=== PATIENT | female | born 1935 | race American Indian/Alaskan Native ===

== ENCOUNTER 2019-03-09 09:46 | Day surgery (SDC) | payer MEDICARE ==
[~2019-03-09 09:46] MED LIST: TETRACAINE 0.5% OD PRN
--- NOTE | 2019-03-09 11:23 | Anesthesia Day of Surgery ---
Anesthesia Day of Surgery - Day of Surgery Patient Examined: Yes Patient H&P Reviewed: Yes Patient is NPO: Yes
--- NOTE | 2019-03-09 11:28 | Anesthesia Consultation ---
Anesthesia Consult and Med Hx Date of service: 03/09/19 - Airway Anesthetic Teeth Evaluation: Dentures ROM Head & Neck: Adequate Mental/Hyoid Distance: Adequate Mallampati Class: Class II Intubation Access Assessment: Good - Pre-Operative Health Status ASA Pre-Surgery Classification: ASA2 Proposed Anesthetic Plan: MAC - Pulmonary Hx Smoking: No Hx Asthma: Yes Hx Sleep Apnea: No - Central Nervous System Hx Back Pain: Yes (6 SHOTS BACK,THEN PHYSICAL THERAPHY-STILL HURTS) Hx Psychiatric Problems: Yes - Hematic Hx Anemia: Yes - Other Systems Hx Alcohol Use: No Hx Substance Use: No Hx Cancer: No
[2019-03-09] MEDS: VIGAMOX OD SCH ×3 (11:40→11:50)
[2019-03-09] MEDS: AK-Dilate OD SCH ×3 (11:40→11:50)
[2019-03-09] MEDS: MYDRIACYL OD SCH ×3 (11:40→11:50)
[2019-03-09] MEDS ORDERED: SUBLIMAZE ONE (12:01)
[2019-03-09] MEDS ORDERED: VERSED IV ONE (12:02)
[2019-03-09] MEDS ORDERED: NACL P/F VIAL (10 ML) 10 ML ONE (12:05)
[2019-03-09] MEDS ORDERED: PRED FORTE 1% OD ONE (12:28)
[2019-03-09] MEDS ORDERED: DIAMOX PO ONE (12:28)
--- NOTE | 2019-03-09 12:29 | Operative Report ---
Operative Report Operative Report: PATIENT'S NAME: DATE OF : DATE OF SURGERY: 03/09/2019 PREOPERATIVE DIAGNOSIS: Cataract right eye POSTOPERATIVE DIAGNOSIS: Same OPERATIVE PROCEDURE: Phacoemulsification with intraocular lens implantation, right eye SURGEON: Delmy Robert M.D. SPECIAL AGENT SURGEON: Petra Lens: [id number] 22.0] D ANESTHESIA: Monitored anesthesia care in combination with topical and intracameral anesthesia because of the established specific risk of reflux, arrhythmias, or anxiety attacks associated with ocular manipulation, as well as the difficulty of the functional skills tutor to manage such potentially catastrophic events while simultaneously attempting to complete the surgical procedure and was deemed necessary for the patient's safety to have an Bath Steward present during the procedure whenever possible. An Bath Steward was utilized to regulate the intravenous sedation of the patient so the patient was cooperative yet not asleep in order for the patient to successfully maintain fixation of the eye on the operating light of the microscope. COMPLICATIONS: No surgical complications No blood loss. ALLERGIES: No known drug allergies PROGNOSIS: Excellent INDICATIONS FOR SURGERY: The patient is undergoing surgery in the hopes of eliminating or improving these visual difficulties. PROCEDURE: After arriving at the surgery center, the patient was given topical anesthetic and dilating drops, as noted in the record. The patient was then taken into the operating room and given more anesthetic drops. The eyelids, lashes, and lid margins were scrubbed with Betadine solution, and the patient was draped. The Nurse Bath Steward administered IV sedation and monitored the patient during the procedure. The eye was then fixated with a 0.12, and a stab incision was made in the peripheral clear cornea into the anterior chamber. This was made on my left side. Viscoelastic was next used to fill the anterior chamber. The eye was once again fixated with the 0.12 forceps and a keratome was used make an incision in clear cornea peripherally on my right hand side temporally. The capsule forceps were used to open the central anterior capsule and then make a continuous round capsulotomy. Hydrodissection was carried out utilizing a cannula and balanced salt solution to delineate the cortical material from the capsule and the nucleus from the cortical material. The phaco tip was introduced into the eye and used to remove the anterior cortical material in the area of the capsulotomy. Then the phaco tip was buried into the nucleus, and a chopping instrument was introduced into the eye and used to provide countertraction in the nucleus between this instrument and the phaco tip fracturing the nucleus. This procedure was repeated multiple times, providing multiple small segments of the lens, and then the phaco tip was used to remove each of these segments. An I/A tip was then used to remove the remaining cortex. The anterior chamber was refilled with viscoelastic. An one-piece, acrylic intraocular lens was then placed into an inserting cartridge. The tip of the inserting cartridge was introduced into the keratome incision and into the anterior chamber. The implant was gently advanced through the cartridge and into the eye, where it unfolded, and both haptics were placed in the capsular bag, where it centered nicely and appeared to be well fixated. After placement of the intraocular lens, the I~and~A handpiece was placed back into the eye and used to remove the viscoelastic, including viscoelastic that was behind the optic of the intraocular lens. The anterior chamber was then filled with balanced salt solution, and hydration of the wound was used to cause swelling of the wound and more appropriate watertight closure. When the wound was found to be firm, the patient was asked to comment on how bright the light was. If there was no light perception at all or if the light was substantially dimmer than during the rest of the surgery, the amount of fluid in the eye was decompressed to lower the intraocular pressure until the patient could see the bright light again. This was done to avoid any damage or decreased blood flow to the optic nerve. MEDICATIONS APPLIED AT END OF SURGERY: One drop of Pred Forte and Vigamox The patient was given a shield to wear at night and was instructed not to rub or push on the eye. DISCHARGE SUMMARY: The patient was released in stable condition. The patient and those with the patient were given a written sheet of postoperative instructions and counseling on any abnormal laboratory studies. The patient is to see us tomorrow for follow-up in the office and is to call immediately for any difficulties. Delmy Robert M.D. Date
--- NOTE | 2019-03-09 12:30 | Short Stay Summary ---
Short Stay Documentation Date of service: 03/09/19 - History H&P: obtained from office - Allergies and Medications Current Medications: Allergies No Known Allergies Allergy (Unverified 05/17/15 08:10) Home Medications Medication Instructions Recorded Confirmed Last Taken Type ALBUTEROL Inhaler (OR & NICU) 2 puff INNOSTRIL 4XD 03/08/19 03/08/19 Unknown History Aspirin 325 mg PO DAILY 03/08/19 03/08/19 Unknown History Cyproheptadine [Periactin] 4 mg PO DAILY 03/08/19 03/08/19 Unknown History Duloxetine HCl 30 mg PO DAILY 03/08/19 03/08/19 Unknown History Tizanidine HCl 2 mg PO DAILY 03/08/19 03/08/19 Unknown History traMADol [Ultram 50 MG tab] 50 mg PO BID 03/08/19 03/08/19 Unknown History Active Medications Acetazolamide (Diamox) 500 mg PO ONCE ONE Stop: 03/09/19 12:29 Moxifloxacin HCl (Vigamox) 1 drops OD Q5M NITIN Stop: 03/09/19 23:59 Last Admin: 03/09/19 11:50 Dose: 1 drops Documented by: Phenylephrine HCl (Ak-Dilate) 1 drops OD Q5M NITIN Stop: 03/09/19 23:59 Last Admin: 03/09/19 11:50 Dose: 1 drops Documented by: Prednisolone Acetate (Pred Forte 1%) 1 drops OD ONCE ONE Stop: 03/09/19 12:29 Tetracaine HCl (Tetracaine 0.5%) 1 drops OD Q5M PRN PRN Reason: Anesthesia Stop: 03/09/19 23:59 Last Admin: 03/09/19 11:40 Dose: 1 drops Documented by: Tropicamide (Mydriacyl) 1 drops OD Q5M NITIN Stop: 03/09/19 23:59 Last Admin: 03/09/19 11:50 Dose: 1 drops Documented by: - Brief post op/procedure progress note Date of procedure: 03/09/19 Pre-op diagnosis: right cataract Post-op diagnosis: same Procedure: Phacoemulsification with intraocular lens insertion right eye Anesthesia: MAC, local Surgeon: SHIVAM BEASLEY Estimated blood loss: none Pathology: none Condition: stable - Disposition Condition at discharge: Good Disposition: DC-01 TO HOME OR SELFCARE - Discharge Diagnoses (1) Cortical age-related cataract of right eye Status: Resolved Short Stay Discharge Plan Follow up with: BELL VALENZUELA MD [Primary Care Provider] - 7 Days
--- NOTE | 2019-03-09 13:13 | Post Anesthesia Evaluation ---
- Post Anesthesia Evaluation Patient Participated: Yes Airway Patent: Yes Stable Respiratory Function: Yes Nausea/Vomiting: No Temp > 96.8F: Yes Pain Manageable: Yes Adequeate Hydration: Yes Anesthesia Complications: No
[2019-03-09 14:34] VITALS: BP 159/83
[2019-03-09] MEDS ORDERED: DIAMOX ONE (16:30)
[2019-03-09] MEDS ORDERED: PRED FORTE 1% ONE (16:31)
== END 2019-03-09 13:30 | disposition home or self-care (01) ==
LOC: OR 09:46
DX: H25.011 Cortical age-related cataract, right eye (principal); J45.909 Unspecified asthma, uncomplicated; M19.90 Unspecified osteoarthritis, unspecified site; F32.9 Major depressive disorder, single episode, unspecified; Z79.899 Other long term (current) drug therapy; Z98.890 Other specified postprocedural states; Z98.51 Tubal ligation status
CPT/HCPCS: 66984; J2250; J3010; V2632

== ENCOUNTER 2019-03-30 07:42 | Day surgery (SDC) | payer MEDICARE ==
[~2019-03-30 07:42] MED LIST changes: -TETRACAINE 0.5% OD PRN; +VISION BLUE IO ONE
[2019-03-30] MEDS: VIGAMOX OS SCH ×3 (09:00→09:10)
[2019-03-30] MEDS: MYDRIACYL OS SCH ×3 (09:00→09:10)
[2019-03-30] MEDS ORDERED: TETRACAINE 0.5% OS NR (09:00)
[2019-03-30] MEDS: AK-Dilate OS SCH ×3 (09:00→09:10)
--- NOTE | 2019-03-30 09:23 | Anesthesia Day of Surgery ---
Anesthesia Day of Surgery - Day of Surgery Patient Examined: Yes Patient H&P Reviewed: Yes Patient is NPO: Yes
--- NOTE | 2019-03-30 09:26 | Anesthesia Consultation ---
Anesthesia Consult and Med Hx Date of service: 03/30/19 - Airway Anesthetic Teeth Evaluation: Dentures, Edentulous ROM Head & Neck: Adequate Mental/Hyoid Distance: Adequate Mallampati Class: Class II Intubation Access Assessment: Good - Pre-Operative Health Status ASA Pre-Surgery Classification: ASA2 Proposed Anesthetic Plan: MAC - Pulmonary Hx Smoking: No Hx Asthma: Yes (RESCUE INHALER) Hx Sleep Apnea: No - Central Nervous System Hx Back Pain: Yes Hx Psychiatric Problems: Yes (Depr) - Hematic Hx Anemia: Yes - Other Systems Hx Alcohol Use: No Hx Substance Use: No Hx Cancer: No
[2019-03-30] MEDS ORDERED: SUBLIMAZE ONE (09:53)
[2019-03-30] MEDS ORDERED: VERSED ONE (09:53)
[2019-03-30] MEDS ORDERED: VISION BLUE IO ONE (10:18)
[2019-03-30 10:39] VITALS: BP 155/89
--- NOTE | 2019-03-30 10:39 | Operative Report ---
Operative Report Operative Report: PATIENT'S NAME: DATE OF : DATE OF SURGERY: 03/30/2019 PREOPERATIVE DIAGNOSIS: Cataract left eye POSTOPERATIVE DIAGNOSIS: Same OPERATIVE PROCEDURE: Phacoemulsification with intraocular lens implantation, left eye SURGEON: Delmy Robert M.D. LICENSED PHYSICAL THERAPY ASSISTANT SURGEON: Petra Lens: [id number] 21.5 D ANESTHESIA: Monitored anesthesia care in combination with topical and intracameral anesthesia because of the established specific risk of reflux, arrhythmias, or anxiety attacks associated with ocular manipulation, as well as the difficulty of the global engineering manager to manage such potentially catastrophic events while simultaneously attempting to complete the surgical procedure and was deemed necessary for the patient's safety to have an Boiler Room Operator present during the procedure whenever possible. An Boiler Room Operator was utilized to regulate the intravenous sedation of the patient so the patient was cooperative yet not asleep in order for the patient to successfully maintain fixation of the eye on the operating light of the microscope. COMPLICATIONS: No surgical complications No blood loss. ALLERGIES: No known drug allergies PROGNOSIS: Excellent INDICATIONS FOR SURGERY: The patient is undergoing surgery in the hopes of eliminating or improving these visual difficulties. PROCEDURE: After arriving at the surgery center, the patient was given topical anesthetic and dilating drops, as noted in the record. The patient was then taken into the operating room and given more anesthetic drops. The eyelids, lashes, and lid margins were scrubbed with Betadine solution, and the patient was draped. The Nurse Boiler Room Operator administered IV sedation and monitored the patient during the procedure. The eye was then fixated with a 0.12, and a stab incision was made in the peripheral clear cornea into the anterior chamber. This was made on my left side. Red reflex was extremely poor because of a steroid hyalosis decided to use trypan blue. Viscoelastic was next used to fill the anterior chamber. The eye was once again fixated with the 0.12 forceps and a keratome was used make an incision in clear cornea peripherally on my right hand side temporally. The capsule forceps were used to open the central anterior capsule and then make a continuous round capsulotomy. Hydrodissection was carried out utilizing a cannula and balanced salt solution to delineate the cortical material from the capsule and the nucleus from the cortical material. The phaco tip was introduced into the eye and used to remove the anterior cortical material in the area of the capsulotomy. Then the phaco tip was buried into the nucleus, and a chopping instrument was introduced into the eye and used to provide countertraction in the nucleus between this instrument and the phaco tip fracturing the nucleus. This procedure was repeated multiple times, providing multiple small segments of the lens, and then the phaco tip was used to remove each of these segments. An I/A tip was then used to remove the remaining cortex. The anterior chamber was refilled with viscoelastic. An one-piece, acrylic intraocular lens was then placed into an inserting cartridge. The tip of the inserting cartridge was introduced into the keratome incision and into the anterior chamber. The implant was gently advanced through the cartridge and into the eye, where it unfolded, and both haptics were placed in the capsular bag, where it centered nicely and appeared to be well fixated. After placement of the intraocular lens, the I~and~A handpiece was placed back into the eye and used to remove the viscoelastic, including viscoelastic that was behind the optic of the intraocular lens. The anterior chamber was then filled with balanced salt solution, and hydration of the wound was used to cause swelling of the wound and more appropriate watertight closure. When the wound was found to be firm, the patient was asked to comment on how bright the light was. If there was no light perception at all or if the light was substantially dimmer than during the rest of the surgery, the amount of fluid in the eye was decompressed to lower the intraocular pressure until the patient could see the bright light again. This was done to avoid any damage or decreased blood flow to the optic nerve. MEDICATIONS APPLIED AT END OF SURGERY: One drop of Pred Forte and Vigamox The patient was given a shield to wear at night and was instructed not to rub or push on the eye. DISCHARGE SUMMARY: The patient was released in stable condition. The patient and those with the patient were given a written sheet of postoperative instructions and counseling on any abnormal laboratory studies. The patient is to see us tomorrow for follow-up in the office and is to call immediately for any difficulties. Delmy Robert M.D. Date
--- NOTE | 2019-03-30 10:40 | Short Stay Summary ---
Short Stay Documentation Date of service: 03/30/19 - History H&P: obtained from office - Allergies and Medications Current Medications: Allergies No Known Allergies Allergy (Verified 03/27/19 16:57) Home Medications Medication Instructions Recorded Confirmed Last Taken Type ALBUTEROL Inhaler (OR & NICU) 2 puff INNOSTRIL 4XD 03/08/19 03/27/19 03/29/19 05:00 History Aspirin 325 mg PO DAILY 03/08/19 03/27/19 03/29/19 05:00 History Duloxetine HCl 30 mg PO DAILY 03/08/19 03/27/19 03/29/19 05:00 History Tizanidine HCl 2 mg PO DAILY 03/08/19 03/27/19 03/29/19 05:00 History traMADol [Ultram 50 MG tab] 50 mg PO BID 03/08/19 03/27/19 03/29/19 05:00 History Active Medications Acetazolamide (Diamox) 500 mg PO ONCE NR Stop: 03/30/19 17:00 Moxifloxacin HCl (Vigamox) 1 drops OS Q5MIN NITIN Stop: 04/05/19 08:24 Last Admin: 03/30/19 09:10 Dose: 1 drops Documented by: Phenylephrine HCl (Ak-Dilate) 1 drops OS Q5MIN NITIN Stop: 03/30/19 15:00 Last Admin: 03/30/19 09:10 Dose: 1 drops Documented by: Prednisolone Acetate (Pred Forte 1%) 1 drops OS ONCE NR Tetracaine HCl (Tetracaine 0.5%) 1 drops OS ONCE NR Stop: 03/30/19 15:00 Last Admin: 03/30/19 09:00 Dose: 1 drops Documented by: Tropicamide (Mydriacyl) 1 drops OS Q5MIN NITIN Stop: 03/30/19 15:00 Last Admin: 03/30/19 09:10 Dose: 1 drops Documented by: - Brief post op/procedure progress note Date of procedure: 03/30/19 Pre-op diagnosis: left cataract Post-op diagnosis: same Procedure: Phacoemulsification with intraocular lens insertion left eye Anesthesia: MAC, local Surgeon: SHIVAM BEASLEY Estimated blood loss: none Pathology: none Condition: stable - Disposition Condition at discharge: Good Disposition: DC-01 TO HOME OR SELFCARE - Discharge Diagnoses (1) Cortical age-related cataract of left eye Status: Resolved Short Stay Discharge Plan Follow up with: BELL VALENZUELA MD [Primary Care Provider] - 7 Days
[2019-03-30] MEDS ORDERED: PRED FORTE 1% OS NR (11:00)
[2019-03-30] MEDS ORDERED: DIAMOX PO NR (11:00)
--- NOTE | 2019-03-30 14:10 | Post Anesthesia Evaluation ---
- Post Anesthesia Evaluation Patient Participated: Yes Airway Patent: Yes Stable Respiratory Function: Yes Nausea/Vomiting: No Temp > 96.8F: Yes Pain Manageable: Yes Adequeate Hydration: Yes Anesthesia Complications: No Block Receding Appropriately: Not Applicable Patient on Ventilator: No
== END 2019-03-30 07:43 | disposition home or self-care (01) ==
LOC: OR 07:42
DX: H25.012 Cortical age-related cataract, left eye (principal); J45.909 Unspecified asthma, uncomplicated; M19.90 Unspecified osteoarthritis, unspecified site; F32.9 Major depressive disorder, single episode, unspecified; Z79.899 Other long term (current) drug therapy; Z79.82 Long term (current) use of aspirin; Z98.41 Cataract extraction status, right eye; Z98.51 Tubal ligation status; Z98.890 Other specified postprocedural states; Z86.2 Personal history of diseases of the blood and blood-forming organs and certain disorders involving the immune mechanism
CPT/HCPCS: 66982; J2250; J3010; V2632

== ENCOUNTER 2019-07-27 09:39 | Outpatient (CLI) | payer MEDICARE ==
--- NOTE | 2019-07-27 15:28 | Mammography Report ---
DIGITAL SCREENING MAMMOGRAM WITH CAD, 07/27/2019 INDICATION: Routine screening mammography. TECHNIQUE: Digital bilateral 2D mammography was obtained in the craniocaudal and mediolateral obliq ue projections. This examination was interpreted with the benefit of Computer-Aided Detection analysi s. COMPARISON: 05/17/2015 FINDINGS: Breast Density: The breasts are heterogeneously dense, which may obscure small masses. There is no evidence of dominant mass, suspicious calcifications or architectural distortion in eithe r breast. Bilateral benign arterial calcifications. IMPRESSION: No mammographic evidence of malignancy. Follow up recommendation: Routine yearly BI-RADS Category 2: Benign. A "normal" or negative report should not discourage follow up or biopsy of a clinically significant f inding. A written summary of these findings will be mailed to the patient. The patient will be entered into a mammography reporting system which will generate a reminder letter for the patient's next appointmen t at the appropriate interval. The [employer] recommends yearly mammograms starting at age 40 and continuing as l marybel as a woman is in good health. Breast MRI is recommended for women with an approximate 20-25% or greater lifetime risk of breast cancer, including women with a strong family history of breast or ova rin cancer or who have been treated for Hodgkin's disease. Signer Name: Cabrera Kaiser MD Signed: 07/27/2019 3:24 PM Workstation Name: [id number]
== END 2019-07-27 09:40 | disposition home or self-care (01) ==
LOC: MAMMO 09:39
PROVIDERS: ATTEND Internal Medicine
DX: Z12.31 Encounter for screening mammogram for malignant neoplasm of breast (principal)
CPT/HCPCS: 77067